=== PATIENT | male | born 1985 | race African-American/Black ===

== ENCOUNTER 2017-12-25 14:28 | Emergency (ER) | payer OTHER ==
[~2017-12-25] VITALS: Ht 190.5 cm; Wt 56.4 kg
[2017-12-25] MEDS ORDERED: THIAMINE HCL 100 MG/ML 2 ML VIAL IV STA (14:55)
[2017-12-25] MEDS ORDERED: SODIUM CHLORIDE 0.9% 1000ML 1,000 ML IV STA (14:55)
[2017-12-25 15:01] VITALS: Ht 190.5 cm; Wt 56.4 kg
[2017-12-25] MEDS ORDERED: DIPHTHERIA/TETANUS/PERTUSSIS 0.5 ML SYR/VIAL IM. ONE (15:15)
--- NOTE | 2017-12-25 15:16 | DIAGNOSTIC IMAGING REPORT ---
CHEST ONE VIEW PORTABLE HISTORY: EVALUATE ALTERED MENTAL STATUS/WEAKNESS COMPARISON: None. FINDINGS: The lungs are clear. Cardiac silhouette is normal in size. No pleural effusions. No pneumothorax. IMPRESSION: No acute process. Electronically signed by: Nolan Shukla M.D. 12/25/2017 3:15 PM Dictated Date/Time: 12/25/2017 3:13 PM
[2017-12-25 15:26] LABS: HEMATOCRIT 34.2 % (42-52); HEMOGLOBIN 12.1 g/dL (14.0-18.0); MEAN CORPUSCULAR HEMOGLOBIN 36.4 pg (25-34); MEAN CORPUSCULAR HGB CONC 35.4 g/dl (32-36); MEAN PLATELET VOLUME 9.6 fL (7.4-10.4); RED CELL DISTRIBUTION WIDTH SD 49.2 fL (36.4-46.3); WHITE BLOOD COUNT 4.89 K/uL (4.8-10.8)
[2017-12-25 15:30] LABS: INR 1.1 (0.9-1.1); PTT PATIENT 25.5 SECONDS (21.0-31.0)
[2017-12-25 15:40] LABS: ALBUMIN 3.9 gm/dl (3.4-5.0); ALKALINE PHOSPHATASE 102 U/L (45-117); ALT/SGPT 90 U/L (12-78); AST/SGOT 317 U/L (15-37); BLOOD UREA NITROGEN 7 mg/dl (7-18); CALCIUM 8.7 mg/dl (8.5-10.1); CARBON DIOXIDE 24 mmol/L (21-32); CREATININE 0.77 mg/dl (0.60-1.40); GLUCOSE 86 mg/dl (70-99); LIPASE 696 U/L (73-393); SODIUM 134 mmol/L (136-145); TOTAL PROTEIN 7.7 gm/dl (6.4-8.2)
--- NOTE | 2017-12-25 15:50 | DIAGNOSTIC IMAGING REPORT ---
HEAD CT NONCONTRAST CT DOSE: 537.48 mGy.cm HISTORY: EVALUATE ALTERED MENTAL STATUS/WEAKNESS TECHNIQUE: Multiaxial CT images of the head were performed without the use of intravenous contrast. Automated exposure control was utilized for this study. A dose lowering technique was utilized adhering to the principles of ALARA. Comparison: None. Findings: The paranasal sinuses and mastoid air cells are clear. The calvarium and skull base are intact. The ventricles and sulci are within normal limits. There is no mass, hematoma, midline shift, or acute infarct. Impression: No acute intracranial abnormality. Electronically signed by: Nolan Shukla M.D. 12/25/2017 3:49 PM Dictated Date/Time: 12/25/2017 3:43 PM
[2017-12-25 15:51] LABS: BASO % 0.6 %; BASO ABS # 0.03 K/uL (0-0.2); EOS % 0.6 %; EOS ABS # 0.03 K/uL (0-0.5); IG# 0.02 K/uL (0.00-0.02); LYMPH % 20.7 %; LYMPH ABS # 1.01 K/uL (1.2-3.4); MONO % 11.9 %; MONO ABS # 0.58 K/uL (0.11-0.59); NEUT % 65.8 %; NEUT ABS # 3.22 K/uL (1.4-6.5); PLATELET COUNT 84 K/uL (130-400)
[2017-12-25] MEDS ORDERED: POTASSIUM CHLORIDE 20 MEQ TABCR PO STA (15:55)
[2017-12-25] MEDS ORDERED: POTASSIUM CHLORIDE 10 MEQ TABCR ONE (15:59)
[2017-12-25 16:31] VITALS: BP 141/100; PULSE 90; TEMP 36.6; O2SAT 99
--- NOTE | 2017-12-25 18:07 | EMERGENCY ROOM VISIT NOTE ---
History Report prepared by Leonela: Alethea Bartlett Under the Supervision of: Dr. Colt Will D.O. First contact with patient: 14:51 Chief Complaint: ILLNESS Stated Complaint: SEIZURE History of Present Illness The patient is a 32 year old male who presents to the Emergency Room with complaints of a sudden illness starting prior to arrival. Nursing staff reports that the patient came by ambulance and was found to be twitching and unconscious at work. They report that his coworker found him when he walked around the side of the building. They deny the patient having any seizure activity. The patient states that he was at work outside and was going to make a phone call when the next thing he knew he was waking up in the back of an ambulance. He states that he apparently lost consciousness and hit his head on the concrete. He states that he was told he may have had a minor seizure, but is unsure. He notes that he has no history of seizures. The patient complains of a headache and pain where his head hit the concrete. The patient notes that he uses alcohol usually every day, but hasn't for 2 days. He notes that he did not get much sleep last night as he was handling business on the phone. The patient denies nausea, vomiting, drug use, and any surgeries. Source of History: patient, nursing staff Onset: prior to arrival Position: head Quality: other (illness) Timing: other (sudden) Associated Symptoms: + headache, No nausea, No vomiting Note: The patient complains of head pain. Review of Systems See HPI for pertinent positives & negatives. A total of 10 systems reviewed and were otherwise negative. Past Medical & Surgical Medical Problems: (1) No Known Active Medical Problems Family History Patient reports no known family medical history. Social History Smoking Status: Current Every Day Smoker Alcohol Use: other (every day) Drug Use: none Marital Status: single Housing Status: lives alone Occupation Status: employed Physical Exam Vital Signs Date Time Temp Pulse Resp B/P (MAP) Pulse Ox O2 Delivery O2 Flow Rate FiO2 12/25/17 16:31 36.6 90 22 141/100 99 12/25/17 15:49 75 22 136/96 99 12/25/17 14:46 36.6 104 16 129/94 98 Room Air 12/25/17 14:44 102 Physical Exam GENERAL: Patient is awake, alert, and in no acute distress. Patient is resting comfortably and showing no signs of anxiety EYES: The conjunctivae are clear. The pupils are round and reactive. EARS, NOSE, MOUTH AND THROAT: The nose is without any evidence of any deformity. Mucous membranes are dry. Tongue is midline. Abrasion to the left parietal scalp. No active bleeding noted. NECK: The neck is nontender and supple. RESPIRATORY: Normal respiratory effort is noted. There is no evidence of wheezing rhonchi or rales to auscultation. CARDIOVASCULAR: Regular rate and rhythm noted. There no murmurs rubs or gallops normal S1 normal S2 GASTROINTESTINAL: The abdomen is soft. Bowel sounds are present in all quadrants. Abdomen is nontender. BACK: No midline tenderness or or step-off noted range of motion in flexion extension as well as rotation no signs of muscle spasm noted. MUSCULOSKELETAL/EXTREMITIES: There is no evidence of gross deformity. Full range of motion is noted in the hips and shoulders. SKIN: There is no obvious evidence of any rash. There are no petechiae, pallor or cyanosis noted. Abrasion to the posterior left shoulder. NEUROLOGIC: Patient is awake alert and oriented x3. Strength is symmetric. Patellar reflexes are 2+ bilaterally. Medical Decision & Procedures ER Provider Diagnostic Interpretation: Radiology results as stated below per my review and radiologist interpretation: HEAD CT NONCONTRAST CT DOSE: 537.48 mGy.cm HISTORY: EVALUATE ALTERED MENTAL STATUS/WEAKNESS TECHNIQUE: Multiaxial CT images of the head were performed without the use of intravenous contrast. Automated exposure control was utilized for this study. A dose lowering technique was utilized adhering to the principles of ALARA. Comparison: None. Findings: The paranasal sinuses and mastoid air cells are clear. The calvarium and skull base are intact. The ventricles and sulci are within normal limits. There is no mass, hematoma, midline shift, or acute infarct. Impression: No acute intracranial abnormality. Electronically signed by: Nolan Shukla M.D. 12/25/2017 3:49 PM Dictated Date/Time: 12/25/2017 3:43 PM CHEST ONE VIEW PORTABLE HISTORY: EVALUATE ALTERED MENTAL STATUS/WEAKNESS COMPARISON: None. FINDINGS: The lungs are clear. Cardiac silhouette is normal in size. No pleural effusions. No pneumothorax. IMPRESSION: No acute process. Electronically signed by: Nolan Shukla M.D. 12/25/2017 3:15 PM Dictated Date/Time: 12/25/2017 3:13 PM Laboratory Results 12/25/17 14:37 Red Blood Count 3.32, Mean Corpuscular Volume 103.0, Mean Corpuscular Hemoglobin 36.4, Mean Corpuscular Hemoglobin Concent 35.4, Mean Platelet Volume 9.6, Neutrophils (%) (Auto) 65.8, Lymphocytes (%) (Auto) 20.7, Monocytes (%) ( Auto) 11.9, Eosinophils (%) (Auto) 0.6, Basophils (%) (Auto) 0.6, Neutrophils # (Auto) 3.22, Lymphocytes # (Auto) 1.01, Monocytes # (Auto) 0.58, Eosinophils # ( Auto) 0.03, Basophils # (Auto) 0.03 12/25/17 14:37 Test 12/25/17 14:37 12/25/17 15:21 White Blood Count 4.89 K/uL (4.8-10.8) Red Blood Count 3.32 M/uL (4.7-6.1) Hemoglobin 12.1 g/dL (14.0-18.0) Hematocrit 34.2 % (42-52) Mean Corpuscular Volume 103.0 fL (80-100) Mean Corpuscular Hemoglobin 36.4 pg (25-34) Mean Corpuscular Hemoglobin Concent 35.4 g/dl (32-36) Platelet Count 84 K/uL (130-400) Mean Platelet Volume 9.6 fL (7.4-10.4) Neutrophils (%) (Auto) 65.8 % Lymphocytes (%) (Auto) 20.7 % Monocytes (%) (Auto) 11.9 % Eosinophils (%) (Auto) 0.6 % Basophils (%) (Auto) 0.6 % Neutrophils # (Auto) 3.22 K/uL (1.4-6.5) Lymphocytes # (Auto) 1.01 K/uL (1.2-3.4) Monocytes # (Auto) 0.58 K/uL (0.11-0.59) Eosinophils # (Auto) 0.03 K/uL (0-0.5) Basophils # (Auto) 0.03 K/uL (0-0.2) RDW Standard Deviation 49.2 fL (36.4-46.3) RDW Coefficient of Variation 13.0 % (11.5-14.5) Immature Granulocyte % (Auto) 0.4 % Immature Granulocyte # (Auto) 0.02 K/uL (0.00-0.02) Platelet Estimate DECREASED Prothrombin Time 11.2 SECONDS (9.0-12.0) Prothromb Time International Ratio 1.1 (0.9-1.1) Activated Partial Thromboplast Time 25.5 SECONDS (21.0-31.0) Partial Thromboplastin Ratio 1.0 Anion Gap 12.0 mmol/L (3-11) Est Creatinine Clear Calc Drug Dose 109.9 ml/min Estimated GFR () 139.2 Estimated GFR (Non- 120.1 BUN/Creatinine Ratio 8.6 (10-20) Calcium Level 8.7 mg/dl (8.5-10.1) Magnesium Level 1.3 mg/dl (1.8-2.4) Total Bilirubin 1.1 mg/dl (0.2-1) Direct Bilirubin 0.4 mg/dl (0-0.2) Aspartate Amino Transf (AST/SGOT) 317 U/L (15-37) Alanine Aminotransferase (ALT/SGPT) 90 U/L (12-78) Alkaline Phosphatase 102 U/L (45-117) Troponin I < 0.015 ng/ml (0-0.045) Total Protein 7.7 gm/dl (6.4-8.2) Albumin 3.9 gm/dl (3.4-5.0) Lipase 696 U/L (73-393) Thyroid Stimulating Hormone (TSH) 1.450 uIu/ml (0.300-4.500) Urine Color ORANGE Urine Appearance CLEAR (CLEAR) Urine pH 6.5 (4.5-7.5) Urine Specific [place] 1.020 (1.000-1.030) Urine Protein TRACE (NEG) Urine Glucose (UA) NEG (NEG) Urine Ketones TRACE (NEG) Urine Occult Blood NEG (NEG) Urine Nitrite NEG (NEG) Urine Bilirubin NEG (NEG) Urine Urobilinogen NEG (NEG) Urine Leukocyte Esterase SMALL (NEG) Urine WBC (Auto) 5-10 /hpf (0-5) Urine RBC (Auto) 0-4 /hpf (0-4) Urine Hyaline Casts (Auto) 1-5 /lpf (0-5) Urine Epithelial Cells (Auto) 10-20 /lpf (0-5) Urine Bacteria (Auto) NEG (NEG) Laboratory results per my review. Medications Administered Medications (Trade) Dose Ordered Sig/Kasey Route Start Time Stop Time Status Last Admin Dose Admin Sodium Chloride 1,000 ml @ 999 mls/hr Q1H1M STAT IV 12/25/17 14:55 12/25/17 15:55 DC 12/25/17 15:03 999 MLS/HR Thiamine HCl (Vitamin B-1 Inj) 100 mg NOW STAT IV 12/25/17 14:55 12/25/17 14:57 DC 12/25/17 15:03 100 MG Diphtheria/ Pertussis/Tetanus Vacc (Adacel Inj) 0.5 ml ONCE ONCE IM. 12/25/17 15:15 12/25/17 15:16 DC 12/25/17 15:15 0.5 ML Potassium Chloride (Klor-Con M10) 20 meq STK-MED ONCE .ROUTE 12/25/17 15:59 12/25/17 16:00 DC 12/25/17 16:02 20 MEQ ECG Per My Interpretation Indication: syncope Rate (beats per minute): 99 Rhythm: normal sinus Findings: no ectopy, other (no acute ST segments) Comparison ECG Date: no prior available ED Course 1451: The patient was evaluated in room B4B. A complete history and physical examination were performed. 1455: Ordered Thiamine HCl 100 mg IV, NSS 1000 ml @ 999 mls/hr IV. 1507: Upon reevaluation, the patient is resting comfortably. I discussed the results and treatment plan with him. He verbalized agreement of the treatment plan. The patient was discharged home. 1515: Ordered Adacel Inj 0.5 ml IM. 1555: Ordered Potassium Chloride 20 meq PO. Medical Decision Differential diagnosis: Etiologies such as infection, hypoglycemia, electrolyte abnormalities, cardiac sources, intracerebral event, trauma, toxicologic, neurologic, as well as others were entertained. Nursing notes reviewed. Additional history is obtained from the prehospital personnel. The patient is a 32-year-old male who admits to alcohol use who presented to the emergency department for a possible seizure. The patient had a syncopal episode and it was reported that he was shaking. When he arrived at the emergency department he did have somewhat of a postictal phase. The patient was awake alert and had no focal neurologic deficits. Certainly is history as well as his laboratory studies would suggest that he has a significant alcohol use history. I discussed patient's laboratory and radiographic studies with him. He had a small abrasion to his scalp as well as his left shoulder. He appeared much more awake alert and oriented on final reevaluation. He was encouraged to avoid any further alcoholic beverages. I also encouraged him to avoid operating any heavy machinery including driving a vehicle until he was cleared by his primary care physician. I encouraged him to follow-up with his primary care physician about further testing such as EEG and MRI. He was also encouraged to return to the emergency department immediately symptoms change worsen or the need arises. Medication Reconcilliation Current Medication List: was personally reviewed by me Blood Pressure Screening Patient's blood pressure: Normal blood pressure Blood pressure disposition: Did not require urgent referral Impression Primary Impression: Syncope Additional Impressions: Seizure Thrombocytopenia Hypokalemia Scalp abrasion Abrasion of left shoulder Scribe Attestation The scribe's documentation has been prepared under my direction and personally reviewed by me in its entirety. I confirm that the note above accurately reflects all work, treatment, procedures, and medical decision making performed by me. Departure Information Dispostion Home / Self-Care Forms HOME CARE DOCUMENTATION FORM, IMPORTANT VISIT INFORMATION, WORK / SCHOOL INSTRUCTIONS Patient Instructions My [facility] [employer] Additional Instructions Avoid any further alcoholic beverages. Drink plenty clear liquids and keep herself well-hydrated. Call your family doctor to schedule follow-up appointment. You may require further study such as an MRI of the brain or an EEG to further evaluate the cause your symptoms. Avoid operating any heavy machinery including driving a vehicle until you are cleared by your family doctor to do so. Return to the emergency department immediately if symptoms change worsen or the need arises. Problem Qualifiers
== END 2017-12-25 16:32 | disposition home or self-care (01) ==
LOC: EDBD 14:28 → C.EDB 14:31
DX: R55 Syncope and collapse (principal); R56.9 Unspecified convulsions; D69.6 Thrombocytopenia, unspecified; E87.6 Hypokalemia; S00.01XA Abrasion of scalp, initial encounter; S40.212A Abrasion of left shoulder, initial encounter; F17.200 Nicotine dependence, unspecified, uncomplicated; Y99.0 Civilian activity done for income or pay; W19.XXXA Unspecified fall, initial encounter; Z23 Encounter for immunization